=== PATIENT | male | born 1950 | race Caucasian/White ===

== ENCOUNTER 2019-10-22 08:36 | Outpatient (REF) | payer MEDICARE, SELFPAY ==
[2019-10-22 09:12] LABS: Prothrombin Time 29.7 sec (9.3-11.0)
== END 2019-10-22 08:56 ==
LOC: LBO 08:36
PROVIDERS: Visit Provider Internal Medicine
DX: Z79.01 Long term (current) use of anticoagulants (principal); Z47.89 Encounter for other orthopedic aftercare; R69 Illness, unspecified
CPT/HCPCS: 85610

== ENCOUNTER 2020-06-05 15:56 | Outpatient (REF) | payer MEDICARE, SELFPAY ==
[2020-06-05 21:23] LABS: INR 3.7 (0.9-1.1); Prothrombin Time 36.2 sec (9.3-11.0)
== END 2020-06-05 16:16 ==
LOC: NCHCN 15:56
PROVIDERS: Visit Provider Internal Medicine
DX: I82.509 Chronic embolism and thrombosis of unspecified deep veins of unspecified lower extremity (principal); Z79.01 Long term (current) use of anticoagulants
CPT/HCPCS: 85610

== ENCOUNTER 2020-06-22 14:27 | Outpatient (REF) | payer MEDICARE, SELFPAY ==
[2020-06-23 00:50] LABS: Prothrombin Time 41.4 sec (9.3-11.0)
[2020-06-23 00:51] LABS: INR 4.3 (0.9-1.1)
== END 2020-06-22 14:47 ==
LOC: NCHCN 14:27
PROVIDERS: Visit Provider Internal Medicine
DX: Z86.711 Personal history of pulmonary embolism (principal); D68.59 Other primary thrombophilia; Z79.01 Long term (current) use of anticoagulants
CPT/HCPCS: 85610

== ENCOUNTER 2025-03-10 16:38 | Outpatient (REF) | payer MEDICARE, SELFPAY ==
[2025-03-10 22:34] LABS: Prothrombin Time 32.6 sec (9.1-11.1)
[2025-03-10 22:36] LABS: INR 3.5 (0.9-1.1)
== END 2025-03-10 16:39 | disposition home or self-care (01) ==
LOC: NCHCN 16:38
PROVIDERS: Visit Provider Internal Medicine
DX: Z79.01 Long term (current) use of anticoagulants (principal)
CPT/HCPCS: 85610